=== PATIENT | male | born 1975 | race Caucasian/White ===

== ENCOUNTER 2019-04-15 18:51 | Emergency (ER) | payer BC ==
[~2019-04-15] VITALS: Ht 185.4 cm; Wt 111.0 kg
[2019-04-15] MEDS ORDERED: KETOROLAC 30MG/ML VIAL IM ONE (23:30)
[2019-04-15 23:44] VITALS: BP 126/80
[2019-04-16] MEDS ORDERED: OSELTAMIVIR 75MG CAPSULE PO ONE (00:15)
== END 2019-04-16 00:50 | disposition home or self-care (01) ==
LOC: ER 18:51
DX: J10.1 Influenza due to other identified influenza virus with other respiratory manifestations (principal); R03.0 Elevated blood-pressure reading, without diagnosis of hypertension
CPT/HCPCS: 87804; 96372; 99283; J1885